=== PATIENT | male | born 1960 | race Caucasian/White ===

== ENCOUNTER 2016-09-03 10:29 | Day surgery (SDC) | payer BC ==
[~2016-09-03] VITALS: Ht 167.6 cm; Wt 126.0 kg
[~2016-09-03 10:29] MED LIST: BUPR1SUB6 SL; CONTOUR1 XX; FURO10S PO; GABA300C3 PO; GLIP5TAB8 PO; GLUC1000 PO; IBUP800T23 PO; LANTUS2P SC; LEVA750T PO; LISI10TA PO; PHEN-329 PO; TAMS0.4C67 PO; WAL-10TA2 PO; [UNRECOGNIZED DRUG - CODE] PO; insulin syringes SQ
[2016-09-03] MEDS ORDERED: NS 1000P @30 MLS/HR (KVO) IV SCH (11:00)
[2016-09-03 11:08] VITALS: BP 169/99; PULSE 108; RESP 20; TEMP 98.9; O2SAT 96
[2016-09-03] MEDS ORDERED: LEVA750T PO (11:10)
[2016-09-03] MEDS ORDERED: ASPI325T PO (11:10)
[2016-09-03] MEDS ORDERED: METF500T PO (11:20)
[2016-09-03] MEDS ORDERED: LISI20TA3 PO (11:20)
[2016-09-03] MEDS ORDERED: CARV6.252 PO (11:20)
[2016-09-03] MEDS ORDERED: DULA0.5I SQ (11:20)
[2016-09-03] MEDS ORDERED: NITR0.4S SL (11:20)
[2016-09-03] MEDS ORDERED: BUME1TAB PO (11:20)
[2016-09-03] MEDS ORDERED: BUPR8SUB SL (11:31)
[2016-09-03] MEDS ORDERED: LORA-361 PO (11:31)
[2016-09-03] MEDS ORDERED: DIPH25CA PO (11:31)
[2016-09-03] MEDS ORDERED: MULTTAB23 (11:31)
[2016-09-03] MEDS ORDERED: DIAZEPAM 5 MG TAB PO ONE (11:45)
[2016-09-03 12:00] LABS: AUTOMATED NEUTROPHIL # 6.5 TH/MM3 (1.8-7.7); BASOPHIL # 0.1 TH/MM3 (0-0.2); BASOPHIL % 0.9 % (0.0-2.0); EOSINOPHIL # 0.1 TH/MM3 (0-0.4); EOSINOPHIL % 1.5 % (0.0-4.0); HEMATOCRIT 36.9 % (39.0-51.0); LYMPH % 18.8 % (9.0-44.0); LYMPHOCYTE # 1.8 TH/MM3 (1.0-4.8); MEAN CELL VOLUME 67.7 FL (80.0-100.0); MEAN CORPUSCULAR HEMOGLOBIN 20.9 PG (27.0-34.0); MEAN CORPUSCULAR HGB CONC 30.8 % (32.0-36.0); MONO % 9.4 % (0.0-8.0); NEUT % 69.4 % (16.0-70.0); PLATELET COUNT 370 TH/MM3 (150-450); RED BLOOD COUNT 5.45 MIL/MM3 (4.50-5.90); RED CELL DISTRIBUTION WIDTH 19.4 % (11.6-17.2); WHITE BLOOD COUNT 9.4 TH/MM3 (4.0-11.0)
[2016-09-03 12:03] LABS: HEMO FLAGS AUTO DIFF
[2016-09-03 12:12] LABS: APTT (PATIENT) 30.7 SEC (24.3-30.1); INTERNATIONAL NORMALIZED RATIO 1.1 RATIO
[2016-09-03 12:15] LABS: BICARBONATE 30.3 MEQ/L (21.0-32.0); POTASSIUM 4.2 MEQ/L (3.5-5.1)
[2016-09-03 12:33] LABS: OVALOCYTES 1+ (NORMAL); SCAN/DIFF AUTO DIFF CONFIRMED
[2016-09-03] MEDS ORDERED: HEPARIN-NS/PF INJ 500 ML ONE (12:48)
[2016-09-03] MEDS ORDERED: MIDAZOLAM HCL 2 MG/2 ML VIAL ONE (12:48)
[2016-09-03] MEDS ORDERED: NITROGLYCERIN INJ 5 ML ONE (12:49)
[2016-09-03] MEDS ORDERED: VERAPAMIL HCL 5 MG/2 ML VIAL ONE (12:49)
[2016-09-03] MEDS ORDERED: HEPARIN SODIUM - IV 10,000 UNITS/10 ML VIAL ONE (12:49)
[2016-09-03] MEDS ORDERED: IOHEXOL 350 MG/ML 50 ML BTL (for Cath Lab) OTHER ONE (15:15)
[2016-09-03] MEDS ORDERED: IOHEXOL 350 MG/ML 100 ML BTL (for Cath Lab) OTHER ONE (15:15)
--- NOTE | 2016-09-03 17:52 | EKG ---
Date Performed: 09/03/2016 Time Performed: 11:13:22 PTAGE: 56 years EKG: Sinus rhythm Left axis deviation RBBB with left anterior fascicular block Left ventricular hypertrophy Lateral ST -T changes are probably due to ventricular hypertrophy Low QRS voltages in precordial leads Since pre vious tracing, no significant change noted Abnormal ECG PREVIOUS TRACING : 11/04/1997 07.07 DOCTOR: Tyrone Hart Interpretating Date/Time 09/03/2016 17:50:16
--- NOTE | 2016-09-04 07:26 | MA ---
cc: DARIEN THEODORE M.D. DANYELL CARUSO DATE: 09/03/2016 PROCEDURE Cardiac catheterization. INDICATION FOR CATHETERIZATION 1. Cardiomyopathy. 2. Abnormal EKG. 3. Recurrent chest pains and shortness of breath. 4. Long history of diabetes. CONSENT A full informed consent was obtained prior to the procedure. The risks of , bleeding, myocardial infarction, perforation, aspiration, foreseen and unforeseen complications were reviewed. The patient fully appeared to understand the risks. PROCEDURAL STATEMENTS The patient was draped and prepped in the usual manner. The right radial artery was entered using a micropuncture technique with ultrasound. Using various catheters left and right coronary catheters were used to intubate the left and right coronary arteries. A pigtail catheter was used to intubate the left ventricle. Multiple angiographic views were carried out. At the end of the catheterization procedure all catheters and sheaths were removed. A TR band was used to seal the right radial artery. FINDINGS HEMODYNAMICS The aortic pressure was 122/82 with mean of 99. The left ventricular pressure was 124 with a left ventricular left ventricular end-diastolic pressure of 48. There was no evidence of significant gradient on pullback across the LV outflow tract and aortic valve. LEFT VENTRICULOGRAM The overall left ventricular ejection fraction was 50%. There was no evidence significant mitral regurgitation or mural thrombus. CORONARIES The left main was large and free of significant disease. The left anterior descending artery was a large vessel with a large first diagonal branch. It too was free of significant disease. In the LAD there was evidence of a 40-50% mid LAD stenosis. The left circumflex artery was a large vessel with a medium size first obtuse marginal branch. The intermediate ramus vessel was a large vessel with no evidence of hemodynamic disease. The right coronary artery was a large vessel with a large posterior descending artery and small posterolateral branches. CONCLUSIONS 1. No significant coronary artery disease except for the single-vessel LAD disease as noted above. 2. Mild cardiomyopathy with ejection fraction of 45-50%. On nuclear scan it was noted to be 48%. PLAN Will continue treatment for cardiomyopathy. No significant coronary artery disease despite a long history of diabetes and a long history of chest pain. Medical management. Darien Theodore MD, FRCP,[facility]/BT /2:22 PM /7:02 AM
== END 2016-09-03 18:30 | disposition home or self-care (01) ==
LOC: HDOC 10:29 → HDIC 10:30 → HDOC 18:30
PROVIDERS: ATTEND Internal Medicine Cardiovascular Disease
DX: I25.10 Atherosclerotic heart disease of native coronary artery without angina pectoris (principal); I42.9 Cardiomyopathy, unspecified; I10 Essential (primary) hypertension; E11.9 Type 2 diabetes mellitus without complications; E66.9 Obesity, unspecified; Z68.41 Body mass index [BMI] 40.0-44.9, adult
CPT/HCPCS: 80048; 85025; 85610; 85730; 93005; 93458; C1769; C1893; J1644; J2250; J3010; Q9967